=== PATIENT | male | born 1970 | race Caucasian/White ===

== ENCOUNTER 2023-07-26 08:00 | Outpatient (CLI) | payer OTHER ==
[2023-07-26 18:15] LABS: FECAL OCCULT BLOOD (FIT) NEGATIVE (NEGATIVE)
== END 2023-07-26 23:59 | disposition home or self-care (01) ==
LOC: LAB.N 08:00
PROVIDERS: ATTEND Physician Assistant
DX: Z12.11 Encounter for screening for malignant neoplasm of colon (principal)
CPT/HCPCS: 82274

== ENCOUNTER 2023-08-12 13:15 | Outpatient (CLI) | payer OTHER ==
[2023-08-12] MEDS ORDERED: ALBUTEROL 1 PUFF INH STA (14:36)
== END 2023-08-12 13:16 | disposition home or self-care (01) ==
LOC: RT 13:15
PROVIDERS: ATTEND Physician Assistant
DX: R06.2 Wheezing (principal)
CPT/HCPCS: 94060; 94729

== ENCOUNTER 2023-11-10 09:15 | Outpatient (CLI) | payer OTHER | END 2023-11-10 09:16 | disposition home or self-care (01) | LOC: DI 09:15 | PROVIDERS: ATTEND Physician Assistant | DX: R94.2 Abnormal results of pulmonary function studies (principal); R06.2 Wheezing; R00.1 Bradycardia, unspecified; I51.7 Cardiomegaly | CPT/HCPCS: 93307 ==